=== PATIENT | male | born 2000 | race Caucasian/White ===

== ENCOUNTER 2019-03-24 02:13 | Emergency (ER) | payer OTHER ==
[~2019-03-24] VITALS: Ht 180.3 cm; Wt 65.8 kg
[2019-03-24 03:17] VITALS: BP 119/61
== END 2019-03-24 03:18 | disposition home or self-care (01) ==
LOC: M.ERS 02:13
DX: S62.394A Other fracture of fourth metacarpal bone, right hand, initial encounter for closed fracture (principal); S10.81XA Abrasion of other specified part of neck, initial encounter; Z88.8 Allergy status to other drugs, medicaments and biological substances; W22.01XA Walked into wall, initial encounter; Y93.89 Activity, other specified; Y92.89 Other specified places as the place of occurrence of the external cause; Y99.8 Other external cause status